=== PATIENT | female | born 1955 | race Caucasian/White ===

== ENCOUNTER 2019-02-16 18:39 | Emergency (ER) | payer OTHER ==
[2019-02-16 18:51] VITALS: BP 175/109
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
[2019-02-16] MEDS ORDERED: cephALEXin 250 MG CAPSULE PO STA (19:13)
[2019-02-16] MEDS ORDERED: CYCLOBENZAPRINE 10 MG TABLET PO STA (19:13)
[2019-02-16] MEDS ORDERED: valACYclovir 500 MG TABLET PO STA (19:13)
[2019-02-16] MEDS ORDERED: MELOXICAM 7.5 MG TABLET PO STA (19:30)
[2019-02-17] MEDS ORDERED: MELOXICAM 7.5 MG TABLET PO SCH (09:00)
== END 2019-02-16 19:39 | disposition home or self-care (01) ==
LOC: ED 18:39
DX: B02.9 Zoster without complications (principal); L01.00 Impetigo, unspecified; M62.830 Muscle spasm of back
CPT/HCPCS: 99284; A9270